=== PATIENT | male | born 1980 | race Caucasian/White ===

== ENCOUNTER 2020-09-03 00:31 | Emergency (ER) | payer SELFPAY ==
[2015-02-06 22:10] VITALS: BP 122/79
[~2020-09-03 00:31] MED LIST: MECL-75 PO; ONDA4TAB10 SL
--- NOTE | 2020-09-03 00:33 | PHYS DOC ---
Past History Past Medical History: Asthma, GERD, IBS Past Medical History Colon polyps Past Surgical History: Other Alcohol Use: Occasionally Drug Use: None General Adult HPI: HPI: ".. I ve not been able to keep anything down .. for weeks now.. maybe months. but to night I could not even keep water down.. I keep having to vomit...." Patient is a 40 year old male who presents with above hx and complaints gastric and upper abdomen pain. Patient's had a similar disorder approximately 2 years ago and underwent upper and lower GI evaluation. Patient at that time was found to have colon polyps. It has been in excess of 7 years since last colonoscopy. No findings of specific lesions of the esophagus. Was on a prolonged course of an acid or meds for reflux and gastritis. Patient was taken off all his antiacids and blockers a proximally year ago. Patient does not smoke. Patient does not do alcohol. No history of bad food intake. No recent travel. Patient no longer works at the [employer]. Currently works at [employer]. No specific exposures. No specific ill contacts. No recent travel. Normally healthy except GI issues. Patient does have seasonal allergies Review of Systems: Review of Systems: Constitutional: Denies fever or chills Eyes: Denies change in visual acuity HENT: History of nasal congestion and drainage Respiratory: Denies cough or shortness of breath Cardiovascular: Denies chest pain or edema GI: Complains of epigastric abdominal pain, nausea, vomiting,. Denies bloody stools or diarrhea : Denies dysuria Musculoskeletal: Denies back pain or joint pain Integument: Denies rash Neurologic: Denies headache, focal weakness or sensory changes Endocrine: Denies polyuria or polydipsia Lymphatic: Denies swollen glands Psychiatric: Denies depression or anxiety Family History: Family History: Noncontributory to presentation Current Medications: Current Meds: See nursing for home meds Allergies: Allergies: Allergies Coded Allergies Type Severity Reaction Last Updated Verified cefaclor Allergy Intermediate Rash 06/08/14 No Physical Exam: PE: Constitutional: In acute distress, non-toxic appearance. [] HENT: Normocephalic, atraumatic, bilateral external ears normal, oropharynx moist, postnasal drainage, no oral exudates, nose swollen turbinates and clear rhinorrhea. Facial scars Eyes: PERRLA, EOMI, conjunctiva normal, no discharge. [] Neck: Normal range of motion, no tenderness, supple, no stridor. [] Cardiovascular:Heart rate regular rhythm, no murmur [] Lungs & Thorax: Bilateral breath sounds equal apex on auscultation [] Abdomen: Bowel sounds normal, soft, epigastric and right upper quadrant tenderness, no masses, no pulsatile masses. Rebound epigastric. Patient declines rectal exam at this time. Skin: Warm, dry, no erythema, no rash. [] Back: No tenderness, no CVA tenderness. [] Extremities: No tenderness, no cyanosis, no clubbing, ROM intact, no edema. No psoas. No obvious cording. Neurologic: Alert and oriented X 3, normal motor function, normal sensory function, no focal deficits noted. [] Psychologic: Affect anxious, judgement normal, mood normal. [] EKG: EKG: My interpretation EKG shows a sinus rhythm at 77 bpm. No acute morphology [] Radiology/Procedures: Radiology/Procedures: [][place] [address] IMAGING REPORT Signed PATIENT: KIM DONG AACCOUNT: [id number] : 1980 LOCATION: ER AGE: 40 SEX: M EXAM STATUS: REG ER ORD. PHYSICIAN: MARIN SYED MD REASON: pain, nv PROCEDURE: ACUTE ABDOMEN SERIES PA chest and AP upright supine abdomen x-rays HISTORY: Abdominal pain, nausea and vomiting. FINDINGS: Heart size normal. Mediastinal silhouette is normal. No pulmonary opacities or pleural effusions. No pneumoperitoneum. There is a moderate volume of stool within the large bowel. No dilated small bowel loops or abnormal air- fluid levels to suggest ileus or obstruction. Left pelvic lucent centered calcification likely a phlebolith. Bones unremarkable. IMPRESSION: Moderate volume of stool within the colon. No small bowel obstruction. No acute process in the chest. Electronically signed by: Cyn Maxwell MD (09/03/2020 1:18 AM) [facility] [place] DICTATED AND SIGNED BY: CYN MAXWELL MD DATE: 09/03/20 0116 CC: MARIN SYED MD; BINU LEDESMA MD ~MTH0 0 Heart Score: C/O Chest Pain: Yes HEART Score for Chest Pain: HEART Score for Chest Pain Response (Comments) Value History Slighlty/Non-Suspicious 0 ECG Normal 0 Age < 45 0 Risk Factors No Risk Factors 0 Troponin < Normal Limit 0 Total 0 Risk Factors: Risk Factors: DM, Current or recent (<one month) smoker, HTN, HLP, family history of CAD, obesity. Risk Scores: Score 0 - 3: 2.5% MACE over next 6 weeks - Discharge Home Score 4 - 6: 20.3% MACE over next 6 weeks - Admit for Clinical Observation Score 7 - 10: 72.7% MACE over next 6 weeks - Early Invasive Strategies Course & Med Decision Making: Course & Med Decision Making Pertinent Labs and Imaging studies reviewed. (See chart for details) No acute surgical pathology noted on X-rays s and no gross lab abnormalities. Take Pepcid 20 mg twice a day. Take Carafate 1 g 4 times a day. Never eat before going to bed. Clear fluid diet for the next 2 days. Get scheduled for an outpatient EGD and colonoscopy. No milk products. No solid foods. May take Zofran 8 mg up to 4 times a day for active nausea and vomiting. Impression: 1. Abdomen pain 2. Suspect esophagitis/gastritis. [] Dragon Disclaimer: Dragon Disclaimer: This electronic medical record was generated, in whole or in part, using a voice recognition dictation system. Departure Departure: Scripts Sucralfate (CARAFATE) 1 Gm Tablet 1 GM PO QID for esophagitis for 30 Days, #120 TAB Prov: MARIN SYED MD 09/03/20 Famotidine (PEPCID) 20 Mg Tablet 20 MG PO twice a day for Gastritis, esophagitis for 90 Days, TAB Prov: MARIN SYED MD 09/03/20 Ondansetron Hcl (ZOFRAN) 4 Mg Tablet 8 MG PO QIDPRN PRN for NAUSEA/VOMITING, #30 TAB Prov: MARIN SYED MD 09/03/20 Dragon Disclaimer This chart was dictated in whole or in part using Voice Recognition software in a busy, high-work load, and often noisy Emergency Department environment. It ma y contain unintended and wholly unrecognized errors or omissions. MARIN SYED MD Sep 03, 2020 00:33
[2020-09-03] MEDS ORDERED: FAMOTIDINE 20 MG/2 ML VIAL IVP ONE ×2 (01:00→01:30)
[2020-09-03] MEDS ORDERED: IV RINGERS SOLUTION,LACTATED 1,000 ML IV SCH (01:00)
[2020-09-03] MEDS ORDERED: KETOROLAC 30 MG/ML VIAL. IVP ONE (01:00)
[2020-09-03] MEDS ORDERED: ONDANSETRON PF 4 MG/2 ML VIAL. IVP ONE ×2 (01:00→03:00)
--- NOTE | 2020-09-03 01:16 | EKG ---
[address] [address] Test Date: 2020-09-03 Test Time: 00:52:47 Pat Name: KIM DONG Department: Room: Gender: M Cpas: COURTNEY : 1980 Requested By: MARIN SYED Order Number: [id number] Reading MD: Measurements Intervals Ennice Rate: 78 P: 54 AR: 144 QRS: -24 QRSD: 84 T: 59 QT: 354 QTc: 407 Interpretive Statements SINUS RHYTHM LEFT ATRIAL ABNORMALITY LEFTWARD AXIS INCOMPLETE RIGHT BUNDLE BRANCH BLOCK ABNORMAL ECG RI6.02 No previous ECG available for comparison
--- NOTE | 2020-09-03 01:20 | RAD ---
PA chest and AP upright supine abdomen x-rays HISTORY: Abdominal pain, nausea and vomiting. FINDINGS: Heart size normal. Mediastinal silhouette is normal. No pulmonary opacities or pleural effu sions. No pneumoperitoneum. There is a moderate volume of stool within the large bowel. No dilated sm all bowel loops or abnormal air-fluid levels to suggest ileus or obstruction. Left pelvic lucent cent ered calcification likely a phlebolith. Bones unremarkable. IMPRESSION: Moderate volume of stool within the colon. No small bowel obstruction. No acute process i n the chest. Electronically signed by: Shaan Maxwell MD (09/03/2020 1:18 AM) [facility]
[2020-09-03 02:03] LABS: BASO # 0.1 x10^3/uL (0.0-0.2); BASO % 1 % (0-3); EOS # 0.9 x10^3/uL (0.0-0.7); EOS % 12 % (0-3); HEMOGLOBIN 15.1 g/dL (13.0-17.5); LYMPH # 2.4 x10^3/uL (1.0-4.8); LYMPH % 34 % (24-48); MEAN CORPUSCULAR HEMOGLOBIN 33 pg (25-35); MEAN CORPUSCULAR HGB CONC 34 g/dL (31-37); MEAN CORPUSCULAR VOLUME 97 fL (79-100); MONO # 0.6 x10^3/uL (0.0-1.1); MONO % 9 % (0-9); NEUT # 3.2 x10^3uL (1.8-7.7); NEUT % 44 % (31-73); PLATELET COUNT 217 x10^3/uL (140-400); RED BLOOD COUNT 4.55 x10^6/uL (4.30-5.70); RED CELL DISTRIBUTION WIDTH 12.4 % (11.5-14.5); WHITE BLOOD COUNT 7.2 x10^3/uL (4.0-11.0)
[2020-09-03 02:13] LABS: BACTERIA,URINE 0 /HPF (0-FEW); BILIRUBIN,URINE NEG (NEG); CLARITY,URINE CLEAR; COLOR,URINE YELLOW; GLUCOSE,URINE NEG (NEG); NITRITE,URINE NEG (NEG); RBC,URINE 0 /HPF (0-2); SQUAMOUS EPITHELIAL CELL,UR OCC /LPF; UROBILINOGEN,URINE 0.2 mg/dL (0.2 mg/dL); WBC,URINE RARE /HPF (0-4)
[2020-09-03 02:14] LABS: CALCIUM 8.9 mg/dL (8.5-10.1); CREATININE 1.1 mg/dL (0.7-1.3); GFR 74.9; POTASSIUM 4.1 mmol/L (3.5-5.1)
[2020-09-03 02:20] LABS: DIRECT BILIRUBIN 0.1 mg/dL (0.0-0.2); TOTAL BILIRUBIN 0.4 mg/dL (0.2-1.0); TOTAL PROTEIN 7.7 g/dL (6.4-8.2)
[2020-09-03] MEDS ORDERED: MAGNESIUM HYDROXIDE 2,400 MG/30 ML ORAL.SUSP. PO ONE (02:30)
[2020-09-03] MEDS ORDERED: SUCR1TAB35 PO (02:48)
[2020-09-03] MEDS ORDERED: FAMO-63 PO (02:48)
[2020-09-03] MEDS ORDERED: ONDA4TAB7 PO (02:48)
[2020-09-03 03:30] LABS: BARBITURATES NEG (NEG); BENZODIAZEPINES NEG (NEG); CANNABINOIDS NEG (NEG); COCAINE NEG (NEG); METHADONE NEG (NEG); OPIATES NEG (NEG); PHENCYCLIDINE NEG (NEG)
[2020-09-03 03:33] LABS: AMPHETAMINE/METHAMPHETAMINE NEG (NEG)
== END 2020-09-03 03:05 | disposition home or self-care (01) ==
LOC: ER 00:31
DX: R10.13 Epigastric pain (principal); K58.9 Irritable bowel syndrome, unspecified; R11.2 Nausea with vomiting, unspecified; J45.909 Unspecified asthma, uncomplicated; K21.9 Gastro-esophageal reflux disease without esophagitis; Z98.890 Other specified postprocedural states
CPT/HCPCS: 36415; 74022; 80048; 80076; 80307; 81001; 82150; 82550; 83690; 84484; 85025; 85610; 85730; 93005; 96361; 96374; 96375; 96376; 99285; J1885; J2405; J3490; J7120